=== PATIENT | male | born 1930 | race Caucasian/White ===

== ENCOUNTER 2017-03-01 16:39 | Emergency (ER) | payer MEDICARE, MEDICAID ==
[2017-03-01 16:46] VITALS: BMI 25.7
[2017-03-01 16:56] VITALS: RESP 18
--- NOTE | 2017-03-01 17:43 | C.PDOC ---
History Of Present Illness 86-year-old male, presents to the emergency department with complaints of chest pain that started yesterday morning, and has now resolved. Patient woke up at 0900 and "felt something but it did not last long." spontaneously resolved, and has not had again since. Hx of CABG in 2016. Denies a Hx of Angina/ No associated shortness of breath, nausea/vomiting, dizziness. Pt is on Aspirin. Pt also complaining of lower GI bleed @1400. Similar episode in the past. CP EPISODE YEST MORNING, NOW RESOLVED. PS AWOKE @ 0900 "FELT SOMETHING BUT DIDNT LAST LONG", SPONT RESOLVED AND HASNT HAD AGAIN SINCE. HO CABG 2016. DENIES HO ANGINA. NO ASSOC SOB, NV, DIZZY. ON ASA ALSO RECUR LGIB @ 1400. SIM EPISODE IN PAST , DX "POLYPS" 2 YRS AGO COLONOSCOPY. STOOL MIXED W BRBPR. HAS HAD NORMAL BM SINCE. NO ASSOC ABD OR RECTAL PAIN. CURRENTLY ASYMPT. EXAM NAD ABD NEG RECTAL NO HEMORRHOIDS; BROWN STOOL NO BRBPR REMAINDER NEG Time Seen by Provider: 03/01/17 17:10 Chief Complaint (Nursing): Chest Pain History Per: Patient History/Exam Limitations: no limitations Onset/Duration Of Symptoms: Days Current Symptoms Are (Timing): Better Severity: Moderate Past Medical History Reviewed: Historical Data, Nursing Documentation, Vital Signs Vital Signs: Last Vital Signs Temp 98 F 03/01/17 16:55 Pulse 70 03/01/17 16:55 Resp 18 03/01/17 16:55 BP 162/84 H 03/01/17 16:55 Pulse Ox 100 03/01/17 18:46 - Medical History PMH: Hypercholesterolemia Family History: States: Unknown Family Hx - Social History Hx Alcohol Use: No Hx Substance Use: No - Immunization History Hx Tetanus Toxoid Vaccination: No Hx Influenza Vaccination: No Hx Pneumococcal Vaccination: No Review Of Systems Except As Marked, All Systems Reviewed And Found Negative. Constitutional: Negative for: Fever, Chills Cardiovascular: Positive for: Chest Pain. Negative for: Palpitations Skin: Negative for: Rash Neurological: Negative for: Weakness, Numbness, Headache, Dizziness Physical Exam - Physical Exam Appears: Non-toxic, No Acute Distress Skin: Warm, Dry, No Rash Head: Atraumatic, Normacephalic Nose: Normal Oral Mucosa: Moist Lips: Normal Appearing Neck: Normal ROM Cardiovascular: Rhythm Regular Respiratory: Normal Breath Sounds, No Accessory Muscle Use Gastrointestinal/Abdominal: Soft, No Tenderness Rectal: Other ( NO HEMORRHOIDS; BROWN STOOL NO BRBPR) Extremity: Normal ROM Neurological/Psych: Oriented x3, Normal Speech ED Course And Treatment - Laboratory Results Result Diagrams: 03/01/17 17:53 03/01/17 17:53 ECG: Interpreted By Me ECG Rhythm: Sinus Rhythm Interpretation Of ECG: TWI I, AVL Rate From EC O2 Sat by Pulse Oximetry: 100 Pulse Ox Interpretation: Normal - Radiology CXR: Interpreted by Me CXR Interpretation: Yes: No Acute Disease Progress - Re-Evaluation Re-evaluation Note: 03/01/17 18:43 EXAM UNCH FROM INITIAL EXAM, REMAINS ASYMPT. VSS. ADVISED FU PMD AND CARDIO THIS WEEK, RETURN IF WORSENING SX - Data Reviewed Data Reviewed: Lab, EKG, Old records - Continuity of Care Discussed patient case with:: Patient, Family-HIPPA compliant Disposition Counseled Patient/Family Regarding: Studies Performed, Diagnosis, Need For Followup - Disposition Referrals: [facility] [Outside] YOUR,PMD [Other] Disposition: HOME/ ROUTINE Disposition Time: 18:44 Condition: GOOD Instructions: Rectal Bleeding (ED), Chest Pain (ED) - Clinical Impression Clinical Impression: Chest pain, Rectal bleed - Scribe Statement The provider has reviewed the documentation as recorded by the Angel Luis Soriano All medical record entries made by the Nazarioibopal were at my direction and personally dictated by me. I have reviewed the chart and agree that the record accurately reflects my personal performance of the history, physical exam, medical decision making, and the department course for this patient. I have also personally directed, reviewed, and agree with the discharge instructions and disposition.
[2017-03-01 18:01] LABS: BASO % 0.4 % (0.0-2.0); EOS # 0.2 K/uL (0.0-0.7); EOS % 2.8 % (0.0-4.0); HEMATOCRIT 39.1 % (35.0-51.0); LYMPH # 1.9 K/uL (1.0-4.3); LYMPH % 27.3 % (20.0-40.0); MEAN CELL VOLUME 88.4 fL (80.0-94.0); MEAN CORPUSCULAR HEMOGLOBIN 28.5 pg (27.0-31.0); MEAN CORPUSCULAR HGB CONC 32.3 g/dL (33.0-37.0); MEAN PLATELET VOLUME 9.8 fL (7.2-11.7); MONO # 0.5 K/uL (0.0-0.8); MONO % 7.5 % (0.0-10.0); NRBC % 0.1 % (0.0-2.0); RED CELL DISTRIBUTION WIDTH 15.3 % (11.5-14.5)
[2017-03-01 18:16] LABS: CHLORIDE 106 mmol/L (98-107); SODIUM 140 mmol/L (132-148)
[2017-03-01 18:17] LABS: POTASSIUM 4.5 mmol/L (3.6-5.2)
[2017-03-01 18:19] LABS: CARBON DIOXIDE 19 mmol/L (22-30); GFR AFRICAN-AMERICAN 54
[2017-03-01 18:20] LABS: BLOOD UREA NITROGEN 28 mg/dL (9-20); CALCIUM 8.6 mg/dl (8.6-10.4); GLUCOSE,RANDOM 79 mg/dL (75-110)
[2017-03-01 19:28] VITALS: BP 150/75; PULSE 78; TEMP 98.7; O2SAT 98
--- NOTE | 2017-03-02 07:47 | RAD ---
PROCEDURE: CHEST RADIOGRAPH, 1 VIEW HISTORY: chest pain COMPARISON: None available. FINDINGS: LUNGS: Biapical pleural thickening with upper lobe granulomatous changes. No focal infiltrate or effusion. Bibasilar breast shadows. PLEURA: No pneumothorax or pleural fluid seen. CARDIOVASCULAR: Status post median sternotomy and CABG. Tortuous aorta. OSSEOUS STRUCTURES: Degenerative changes in the spine and shoulders. VISUALIZED UPPER ABDOMEN: Normal. OTHER FINDINGS: None. IMPRESSION: Biapical pleural thickening with upper lobe granulomatous changes. No focal infiltrate or effusion. Bibasilar breast shadows.
--- NOTE | 2017-03-03 11:38 | CARD ---
APPROVED REPORT EKG Measurement Heart [id number] <Conclusion> Sinus rhythm with sinus arrhythmia with 1st degree AV block ST & T wave abnormality, consider lateral ischemia Abnormal ECG
== END 2017-03-01 19:15 | disposition home or self-care (01) ==
LOC: C.ER 16:39
DX: R07.9 Chest pain, unspecified (principal); K62.5 Hemorrhage of anus and rectum
CPT/HCPCS: 71010; 80048; 84484; 85025; 93005; 99284; G0328